=== PATIENT | female | born 1945 | race Caucasian/White ===

== ENCOUNTER 2017-03-11 10:04 | Outpatient (CLI) | payer MEDICARE ==
[2017-03-11 13:05] LABS: Mean Platelet Volume 7.2 fL (7.4-10.4); Red Blood Cell (RBC) Count 4.75 mill/uL (4.20-5.40); White Blood Cell (WBC) Count 5.5 thou/uL (4.8-10.8)
[2017-03-11 13:30] LABS: Anion Gap 10 mmol/L (10-20); BUN (Urea Nitrogen) 14 mg/dL (9.8-20.1); Calc. Creatinine Clearance 0 mL/min (70-130); Calcium 9.9 mg/dL (7.8-10.44); Carbon Dioxide 31 mmol/L (23-31); Chloride 103 mmol/L (98-107); Estimated GFR-MDRD 87
[2017-03-11 13:52] LABS: PTT 29.9 SEC (22.9-36.1)
[2017-03-11 13:53] LABS: Prothrombin Time 12.7 SEC (12.0-14.7)
--- NOTE | 2017-03-11 22:11 | EKG ---
Test Reason : Blood Pressure : / mmHG Vent. Rate : 059 BPM Atrial Rate : 059 BPM P-R Int : 184 ms QRS Dur : 122 ms QT Int : 480 ms P-R-T Axes : 064 -21 066 degrees QTc Int : 475 ms Sinus bradycardia Left bundle branch block Abnormal ECG When compared with ECG of 01-MAY-2012 12:21, Premature ventricular and fusion complexes are no longer Present Left bundle branch block has replaced Incomplete right bundle branch block Criteria for Anterior infarct are no longer Present Confirmed by XUAN BANEGAS, DR. Monroe ([id number]) on 03/11/2017 10:10:38 PM Referred By: JEREMIAH Confirmed By:DR. Fer GOVEA MD
== END 2017-03-11 10:05 | disposition home or self-care (01) ==
LOC: LABBT 10:04
PROVIDERS: ATTEND Surgery
DX: Z01.818 Encounter for other preprocedural examination (principal); M48.061 Spinal stenosis, lumbar region without neurogenic claudication; M54.16 Radiculopathy, lumbar region
CPT/HCPCS: 80048; 85027; 85610; 85730; 93005; 93010

== ENCOUNTER 2017-03-19 13:29 | Day surgery (SDC) | payer MEDICARE ==
[2017-03-19] MEDS ORDERED: CEFAZOLIN/Water 2 GM/20 ML SYRINGE ONE (15:00)
[2017-03-19] MEDS ORDERED: Bacitracin Zinc Ointment 30 gm TUBE ONE (15:11)
[2017-03-19] MEDS ORDERED: Sodium Chloride 0.9% 10 ML ONE (15:11)
[2017-03-19] MEDS ORDERED: Thrombin 5000 UNITS/5 ML VIAL ONE (15:11)
[2017-03-19] MEDS ORDERED: Albumin 5% 500 ML ONE (15:19)
[2017-03-19] MEDS ORDERED: Phenylephrine 10 MG/NS 250 ML 0 ML ONE ×2 (15:19→15:20)
[2017-03-19] MEDS ORDERED: Fentanyl 250 MCG/5 ML VIAL ONE (15:29)
[2017-03-19] MEDS ORDERED: Lidocaine 2% MPF 10 ML AMP (For Epidural Use) ONE (15:48)
[2017-03-19] MEDS ORDERED: Vecuronium 10 MG VIAL ONE (15:48)
[2017-03-19] MEDS ORDERED: Glycopyrrolate 0.2 MG/ML 5 ML SYRINGE ONE (15:48)
[2017-03-19] MEDS ORDERED: Propofol 200 MG/20 ML VIAL ONE ×2 (15:48)
[2017-03-19] MEDS ORDERED: Ondansetron HCl/PF 4 MG/2 ML Vial ONE (15:48)
[2017-03-19] MEDS ORDERED: PHENYLEPHRINE-NS 100 MCG/ML 10 ML SYRINGE ONE ×2 (15:48)
[2017-03-19] MEDS ORDERED: Dexamethasone 20 MG/5 ML VIAL ONE (15:48)
[2017-03-19] MEDS ORDERED: Ondansetron HCl/PF 4 MG/2 ML Vial IVP PRN (16:38)
[2017-03-19] MEDS ORDERED: Promethazine HCl 25 MG/ML VIAL IM PRN ×2 (16:38→17:52)
[2017-03-19] MEDS ORDERED: Meperidine HCl/PF 25 MG/ML VIAL SLOW IVP PRN (16:38)
[2017-03-19] MEDS ORDERED: HYDROmorphone 2 MG/ML VIAL SLOW IVP PRN (16:38)
[2017-03-19] MEDS ORDERED: Promethazine HCl 25 MG/ML VIAL SLOW IVP PRN (16:38)
[2017-03-19] MEDS ORDERED: traMADol HCl 50 MG TAB PO PRN (17:52)
[2017-03-19] MEDS ORDERED: Mag-Al 1200 mg/1200 mg/30 ML UDCUP PO PRN (17:52)
[2017-03-19] MEDS ORDERED: Fleet Enema 133 ML BOT PR PRN (17:52)
[2017-03-19] MEDS ORDERED: Acetaminophen 325 MG TAB PO PRN (17:52)
[2017-03-19] MEDS ORDERED: Milk Of Magnesia 30 ML UDCUP PO PRN (17:52)
[2017-03-19] MEDS ORDERED: Bisacodyl 10 MG SUPP PR PRN (17:52)
[2017-03-19] MEDS ORDERED: Fentanyl 100 MCG/2 ML VIAL ONE ×2 (18:30→19:24)
[2017-03-19] MEDS: Morphine 4 MG/ML VIAL SLOW IVP PRN (20:58)
[2017-03-19] MEDS ORDERED: Simvastatin 20 MG TAB PO SCH (21:00)
[2017-03-19] MEDS ORDERED: BIOTIN 10 MG PO SCH (21:00)
--- NOTE | 2017-03-19 22:56 | OP ---
OR: 12 WOUND TYPE: Type 1 wound. SURGEON: Jim Honeycutt M.D. BALE PILER: Andrews Castaneda PA-C. PREPROCEDURE DIAGNOSIS: Low back and right leg pain with right L5 and right S1 radiculopathy. POSTPROCEDURE DIAGNOSES: Low back and right leg pain with right L5 and right S1 radiculopathy. PROCEDURES PERFORMED: 1. Right L4-L5 hemilaminotomy, foraminotomy with partial facetectomy. 2. Right L5-S1 hemilaminotomy, foraminotomy, diskectomy. 3. Use of operative microscope for microdissection. DESCRIPTION OF PROCEDURE: After informed consent was obtained from the patient, the patient was brou ght to OR 12. Proper patient pause and identification was carried out. She was placed under excelle nt general endotracheal anesthesia and positioned prone on the operating room table. All appropriate points were padded. Midline linear jose was made in the low back to allow for approach to the right L4-L5, right L5-S1 segments. This area was sterilely cleansed, prepared, and draped. Proper patien t pause and identification was carried out. The wound was then opened with a combination of sharp, m onopolar and blunt dissection. The right L4-L5 and right L5-S1 hemilamina facet complexes were expos ed. Localization film confirmed our area of interest. We then performed right L4-L5, right L5-S1 he milaminotomies, foraminotomies and partial facetectomies. Microscope was then brought into the field for microdissection and completed a right L4-L5 and right L5-S1 decompression. I opted not to do a diskectomy at the L4-L5 segment as we had excellent decompression of the right L4, right L5 nerve cade ts; however, at the right L5-S1 segment, I did attempt to do a diskectomy; however the disk was quite osteophytic. We had excellent decompression at that point to the right L4, right L5, and right S1 n erve roots. Copious irrigation occurred throughout. The wound was then closed in anatomic layers fo llowing the sprinkling of vancomycin powder. The patient then emerged from anesthesia.
[2017-03-19 23:07] VITALS: BMI 32.9
[2017-03-20] MEDS: HYDROcodone/Acetaminophen 7.5/325 mg Tablet PO PRN ×2 (00:40→12:46)
[2017-03-20] MEDS: CEFAZOLIN/Water 2 GM/20 ML SYRINGE SLOW IVP SCH ×2 (00:40→08:23)
[2017-03-20] MEDS: Sodium Chloride 0.9% 1,000 ML IV SCH ×2 (00:47→15:46)
[2017-03-20] MEDS: tiZANidine HCl 4 MG TAB PO PRN ×2 (02:28→08:17)
[2017-03-20] MEDS: Morphine 4 MG/ML VIAL SLOW IVP PRN (10:26)
--- NOTE | 2017-03-20 12:03 | PRG ---
DATE OF SERVICE: 03/20/2017 Ms. Sanchez is one day out from a 2-level hemilaminectomy for decompression of right-sided L5 and S1 nerve roots. Leg pain is better. Her back is sore. The soreness in her back is making her not walk to get up and move around as much as would be ideal. She has gotten out of bed five times to go to the bathroom. She has not made a lap around the nursing floor yet today. Neurologically, she is wel l. She has good strength and sensation in the lower extremities. Back is sore. I encouraged her to ambulate. If she is ambulatory, tolerating general diet, safe for all her activities of daily livin g, then she could be discharged as early as today. Otherwise, we will plan on tomorrow.
[2017-03-20 12:17] VITALS: BP 94/59; TEMP 97.7
--- NOTE | 2017-03-23 07:50 | DIS ---
DATE OF ADMISSION: 03/19/2017 DATE OF DISCHARGE: 03/20/2017 DISCHARGE DIAGNOSES: 1. Lumbar radiculopathy. 2. Lumbar spinal stenosis with herniated disk at L5-S1. HOSPITAL COURSE: Ms. Sanchez was admitted to [facility] to undergo right-sided L4-L5 hemila minotomy, foraminotomy with partial facetectomy and right L5-S1 hemilaminotomies, foraminotomy, and d iskectomy with Dr. Honeycutt. The patient's surgery was without complication and she was sent to the braga rgical floor to recover overnight. At time of discharge, her pain was under good control including a lmost complete resolution of her right lower extremity pain. Appropriate patient education was provi ded and outpatient followup were scheduled. Ample opportunity was given to the patient to discuss he r questions and concerns at discharge and she was pleased with her outcome postoperatively.
== END 2017-03-20 15:45 | disposition home or self-care (01) ==
LOC: SDC 13:29 → SURG A 20:13 → SDC 03-20 15:45
PROVIDERS: ATTEND Surgery
PROC: 0ST20ZZ Resection of Lumbar Vertebral Disc, Open Approach (ICD-10-PCS; principal; 2017-03-19)
PROC: 01NB0ZZ Release Lumbar Nerve, Open Approach (ICD-10-PCS; 2017-03-19)
DX: M54.16 Radiculopathy, lumbar region (principal); M48.061 Spinal stenosis, lumbar region without neurogenic claudication; E78.5 Hyperlipidemia, unspecified; M19.90 Unspecified osteoarthritis, unspecified site; Z79.899 Other long term (current) drug therapy; Z88.5 Allergy status to narcotic agent; Z96.653 Presence of artificial knee joint, bilateral; Z90.89 Acquired absence of other organs; Z90.710 Acquired absence of both cervix and uterus; Z98.890 Other specified postprocedural states
CPT/HCPCS: 63047; 63048 ×2; 76001; 96374; P9045; A4216; J1100; J2001; J2270; J2405; J2704; J3010; J3370; J3490

== ENCOUNTER 2017-03-22 07:53 | Emergency (ER) | payer MEDICARE ==
[2017-03-22] MEDS ORDERED: Metoclopramide HCl 10 MG/2 ML VIAL ONE (09:16)
[2017-03-22 09:32] LABS: #Lymphocytes 1.1 thou/uL (1.20-3.40); #Monocytes 0.3 thou/uL (0.11-0.59); #Neutrophils 10.3 thou/uL (1.40-6.50); %Monocytes 2.3 % (0.0-10.0); Hematocrit 43.3 % (36.0-47.0); Mean Platelet Volume 7.4 fL (7.4-10.4); Red Blood Cell (RBC) Count 4.64 mill/uL (4.20-5.40); White Blood Cell (WBC) Count 11.7 thou/uL (4.8-10.8)
[2017-03-22 09:57] LABS: ALT (SGPT) 14 U/L (8-55); AST (SGOT) 20 U/L (5-34); Alkaline Phosphatase 80 U/L (40-150); Anion Gap 15 mmol/L (10-20); BUN (Urea Nitrogen) 17 mg/dL (9.8-20.1); Bilirubin, Total 0.7 mg/dL (0.2-1.2); Calc. Creatinine Clearance 0 mL/min (70-130); Calcium 10.2 mg/dL (7.8-10.44); Carbon Dioxide 24 mmol/L (23-31); Chloride 103 mmol/L (98-107); Estimated GFR-MDRD 81; Globulin 2.7 g/dL (2.4-3.5); Lipase 15 U/L (8-78); Protein, Total 6.9 g/dL (6.0-8.3)
[2017-03-22 10:55] LABS: Bilirubin Negative (Negative); Blood, Urine Negative (Negative); Glucose, Urine (Dipstick) Negative (Negative); Ketone, Urine Trace mg/dL (Negative); Nitrite Negative (Negative); Protein, Urine (Dipstick) Negative (Neg-Trace); Urobilinogen 0.2 mg/dL (0.2-1.0)
== END 2017-03-22 11:55 | disposition home or self-care (01) ==
LOC: ERS 07:53
DX: R11.2 Nausea with vomiting, unspecified (principal); R10.9 Unspecified abdominal pain; Z87.39 Personal history of other diseases of the musculoskeletal system and connective tissue
CPT/HCPCS: 80053; 81003; 82553; 83690; 84484; 85025; 93005; 96361; 96374; J2765

== ENCOUNTER 2018-05-28 13:09 | Outpatient (CLI) | payer MEDICARE ==
--- NOTE | 2018-05-28 15:05 | MRI ---
MRI CERVICAL SPINE NONCONTRAST: HISTORY: Neck pain with right arm radiculopathy. FINDINGS: Vertebral body heights are maintained. There is desiccation of the intervertebral disks. C2-3: Central canal and neural foramen are patent. C3-4: Disk space narrowing. Minimal degenerative spondylolisthesis. Posterior osteophyte/disk comp donald and circumferential degenerative changes. Mild stenosis of the central canal. Moderate to sever e stenosis of each neural foramen. C4-5: Mild disk space narrowing. Thecal sac is patent. Degenerative changes with moderate to sever e stenosis of each neural foramen. C5-6: Loss of disk space. 0.4 cm retrolisthesis. Prominent posterior osteophyte/disk complex with slight flattening of the ventral aspect of the thecal sac and spinal cord. Severe central canal sten osis. No abnormal signal is apparent within the spinal cord. Severe stenosis of each neural foramen . C6-7: Very mild osteophytosis. Central canal and neural foramen are patent. C7-T1: Central canal and neural foramen are patent. Mild posterior disk bulges are apparent at the T1-2 and T2-3 levels. IMPRESSION: Multilevel degenerative changes throughout the cervical spine. Central canal and foraminal stenoses most severe at the C5-6 level. No evidence of myelomalacia. POS: [facility]
== END 2018-05-28 13:10 | disposition home or self-care (01) ==
LOC: BICMRI 13:09
PROVIDERS: ATTEND Family Medicine
DX: M47.22 Other spondylosis with radiculopathy, cervical region (principal); M48.02 Spinal stenosis, cervical region
CPT/HCPCS: 72141

== ENCOUNTER 2018-07-03 12:06 | Outpatient (CLI) | payer MEDICARE, OTHER ==
[~2018-07-03 12:06] MED LIST: Gadobenate Dimeglumine 529 MG/1 ML (20ML VIAL) ONE
--- NOTE | 2018-07-03 14:53 | RAD ---
LUMBAR SPINE FOUR VIEWS: History: Post laminectomy syndrome, intervertebral disc disorder. Radiculopathy. Post laminectomy syndrome. Lo w back pain. FINDINGS: Extensive multilevel disc osteophytosis and facet arthrosis with 0.8 cm anterolisthesis of L5 on S1 w ith abnormal translation between flexion and extension. No evidence for acute fracture or dislocation . IMPRESSION: Stable appearing lumbar spine with mild anterolisthesis of L5 on S1 without abnormal translation betw een flexion and extension. POS: [facility]
--- NOTE | 2018-07-03 15:31 | MRI ---
MRI LUMBAR SPINE WITH AND WITHOUT CONTRAST: DATE: 07/03/18 HISTORY: 73-year-old female. M96.1, post laminectomy syndrome, not elsewhere classified. M51.16, intervertebral disc disorder with radiculopathy of lumbar region. COMPARISON: 06/19/16. TECHNIQUE: Multiple sequences obtained in axial and sagittal planes, pre and post IV injection of gadolinium-bas ed contrast agent: 13 mL MultiHance. FINDINGS: There is a nonenhancing 1 cm parenchymal lesion at the posterior aspect of the right renal upper pole , and a similar one at the anterolateral aspect of right renal mid pole, consistent with cysts. Vertebral body heights are maintained. T12-L1: Tiny central disc protrusion. Otherwise normal. L1-2: Degenerative disc disease manifested by severe disc space narrowing, end plate irregularities, and diffuse, broad based disc-osteophytic bar complex which encroaches upon the anterior aspect of t he spinal canal without causing high grade central spinal canal stenosis. Mild bilateral neural derrek inal stenosis. No major interval change. Modic Type II end plate changes. L2-3: Conus medullaris terminates at lower L2. Severe disc space narrowing, end plate irregularity, Modic Type II changes, slight degenerative retrolisthesis of L2 on L3, and diffuse, broad based disc- osteophytic bar complex that indents the ventral aspect of the thecal sac. Small focal right paracent ral disc-osteophyte complex superimposed on the diffuse component again noted. Minimal central spinal canal stenosis. Mild thecal sac stenosis. No high grade facet DJD. Mild to moderate right neural for aminal stenosis. Mild left neural foraminal stenosis. No major interval change. L3-4: Slight interval progression of the now moderate-severe disc space narrowing. New finding of bunny ne marrow edema and marrow enhancement of the inferior end plate of L3 and superior end plate of L4. This could either represent severe Modic Type I changes or osteomyelitis. Mildly hyperintense T2 sign al within the disc space. This could represent extensive annular tears or early diskitis. The end jennyfer nima are not frankly destroyed. It is difficult to determinate whether or not there is enhancement of the intervertebral disc space, because of artifact on the postcontrast T1-weighted sagittal sequence. Broad based disc-osteophytic bar complex indents the ventral aspect of the thecal sac, causing mild central spinal canal stenosis. Posterior epidural fat pad is larger on the current study compared to the previous, contributing to a greater degree of thecal sac stenosis than before, now moderate. Righ t lateral and far lateral component of the disc bulge causes moderate right neural foraminal stenosis , similar to previous study. There is also moderate left neural foraminal stenosis, similar to previo us study. L4-5: There is a new right partial facetectomy and/or hemilaminotomy. This results in a defect at th e medial anterior aspect of the right facet complex into which the right lateral aspect of the thecal sac bulges laterally. There is no significant central spinal canal stenosis. Posterior epidural fat pad. The thecal sac is minimally stenotic. No interval change in the degree of moderate disc space na rrowing, diffuse disc bulge, and degenerative retrolisthesis of L4 on L5. Bilateral mild to moderate degenerative facet changes. Moderate bilateral neural foraminal stenosis. L5-S1: Disc space maintained. Severe bilateral facet DJD results in Grade I anterolisthesis of L5 on S1, unchanged. Diffuse disc bulge. No central stenosis. Moderate to severe right neural foraminal st enosis with indentation upon the inferior aspect of the exiting right L5 nerve root by far lateral co mponent of disc bulge. Moderate left neural foraminal stenosis. No overall interval change at this le crow. IMPRESSION: 1. Lumbar spondylosis: multilevel degenerative disc disease, ranging from mild to severe; and L5-S1 severe facet osteoarthrosis. 2. New finding of bone marrow edema at the end plates at L3-4. This may represent somewhat severe Mo dic Type I changes. There is an alternative possibility of osteomyelitis-diskitis. 3. Status post right hemilaminotomy and/or right partial facetectomy at L4-5. 4. Multilevel high grade bilateral neural foraminal stenosis, worst on the right at L5-S1. All of th renetta are unchanged since 06/19/16. 5. No severe central spinal canal stenosis at any level. JN Thao POS: [facility]
== END 2018-07-03 12:07 | disposition home or self-care (01) ==
LOC: BICMRI 12:06
PROVIDERS: ATTEND Specialist
DX: M96.1 Postlaminectomy syndrome, not elsewhere classified (principal); M51.16 Intervertebral disc disorders with radiculopathy, lumbar region; M43.17 Spondylolisthesis, lumbosacral region; M47.26 Other spondylosis with radiculopathy, lumbar region; M47.817 Spondylosis without myelopathy or radiculopathy, lumbosacral region; M48.07 Spinal stenosis, lumbosacral region
CPT/HCPCS: 72110; 72158; 82565; A9577

== ENCOUNTER 2022-07-18 14:01 | Emergency (ER) | payer MEDICARE ==
[2022-07-18] MEDS ORDERED: fentaNYL 50 mcg/mL 1 mL Vial ONE (14:11)
[2022-07-18] MEDS ORDERED: Ondansetron PF 4 MG/2 ML Vial ONE (14:11)
[2022-07-18] MEDS ORDERED: Ketamine 50 MG/ML (10ML VIAL) ONE (15:10)
[2022-07-18] MEDS ORDERED: PROPOFOL 20 ML ONE (15:44)
[2022-07-18 16:12] LABS: #Basophils 0.1 thou/uL (0.0-0.2); #Lymphocytes 3.4 thou/uL (1.20-3.40); #Neutrophils 8.8 thou/uL (1.40-6.50); %Basophils 0.4 % (0.0-1.0); %Eosinophils 0.4 % (0.0-10.0); %Lymphocytes 25.9 % (21.0-51.0); %Monocytes 7.3 % (0.0-10.0); %Neutrophils 66.1 % (42.0-75.0); Hemoglobin 15.2 g/dL (12.0-16.0); Mean Corpuscular HGB CONC 34.5 g/dL (32.0-36.0); Mean Corpuscular Volume 89.9 fl (78.0-98.0); Mean Platelet Volume 7.9 fL (7.4-10.4); Platelet Count 286 10x3/uL (130-400); RBC Distribution Width 12.6 % (11.5-14.5); White Blood Cell (WBC) Count 13.2 10x3/uL (4.8-10.8)
[2022-07-18 16:33] LABS: ALT (SGPT) 16 U/L (8-55); AST (SGOT) 19 U/L (5-34); Albumin 4.6 g/dL (3.4-4.8); Alkaline Phosphatase 107 U/L (40-110); Anion Gap 18 mmol/L (10-20); BUN (Urea Nitrogen) 16 mg/dL (9.8-20.1); Bilirubin, Total 0.8 mg/dL (0.2-1.2); Calc. Creatinine Clearance 0 mL/min (70-130); Calcium 9.7 mg/dL (7.8-10.44); Carbon Dioxide 20 mmol/L (23-31); Chloride 104 mmol/L (98-107); Estimated GFR 82; Globulin 2.5 g/dL (2.4-3.5); Glucose 163 mg/dL (83-110); Potassium 3.6 mmol/L (3.5-5.1); Protein, Total 7.1 g/dL (5.8-8.1); Sodium 138 mmol/L (136-145)
[2022-07-18] MEDS ORDERED: Bacitracin 1 PK ONE (17:23)
[2022-07-18 17:44] LABS: Bacteria/HPF None Seen HPF (None Seen); Bilirubin Negative (Negative); Blood, Urine Negative (Negative); Clarity Clear (Clear); Glucose, Urine (Dipstick) Normal (Negative); Ketone, Urine 60 mg/dL (Negative); Leukocyte 75 Leu/uL (Negative); Nitrite Negative (Negative); Protein, Urine (Dipstick) 20 mg/dL (Neg-Trace); RBC/HPF 0-3 HPF (0-3); Specific Gravity, Urine 1.027 (1.002-1.036); Squamous Epithelial 0-3 HPF (0-3); WBC/HPF 0-3 HPF (0-3); pH, Urine 5.5 (5.0-9.0)
== END 2022-07-18 18:12 | disposition home or self-care (01) ==
LOC: ERS 14:01
DX: S43.004A Unspecified dislocation of right shoulder joint, initial encounter (principal); W18.30XA Fall on same level, unspecified, initial encounter; R68.89 Other general symptoms and signs; Z20.822 Contact with and (suspected) exposure to COVID-19
CPT/HCPCS: 23650; 71045; 73030; 73060; 80053; 83880; 84484; 85025; 93005; 96374; 96375; 99152; 99284; J3010; U0003; U0005; 81003; 81015; J2405; J2704

== ENCOUNTER 2022-08-27 09:31 | Outpatient (CLI) | payer MEDICARE | END 2022-08-27 09:32 | disposition home or self-care (01) | LOC: TBSIIMAG 09:31 | PROVIDERS: ATTEND Orthopaedic Surgery | DX: S46.011A Strain of muscle(s) and tendon(s) of the rotator cuff of right shoulder, initial encounter (principal); M19.012 Primary osteoarthritis, left shoulder; M19.011 Primary osteoarthritis, right shoulder ==

== ENCOUNTER 2023-02-27 09:35 | Outpatient (CLI) | payer MEDICARE | END 2023-02-27 09:36 | disposition home or self-care (01) | LOC: MRI 09:35 → EEVIPCON 09:35 → MRI 09:36 | PROVIDERS: ATTEND Surgery | DX: M43.17 Spondylolisthesis, lumbosacral region (principal); M53.9 Dorsopathy, unspecified; M47.816 Spondylosis without myelopathy or radiculopathy, lumbar region; Z98.890 Other specified postprocedural states | CPT/HCPCS: 72148 ==

== ENCOUNTER 2023-03-18 13:04 | Outpatient (CLI) | payer MEDICARE | END 2023-03-18 13:05 | disposition home or self-care (01) | LOC: BICMRI 13:04 | PROVIDERS: ATTEND Surgery | DX: M25.552 Pain in left hip (principal); M70.62 Trochanteric bursitis, left hip; S76.012A Strain of muscle, fascia and tendon of left hip, initial encounter ==

== ENCOUNTER 2023-06-12 09:59 | Outpatient (CLI) | payer MEDICARE ==
[~2023-06-12 09:59] MED LIST changes: -Gadobenate Dimeglumine 529 MG/1 ML (20ML VIAL) ONE; +Magnevist 469MG/ML 20 ML VIAL ONE
== END 2023-06-12 10:00 | disposition home or self-care (01) ==
LOC: BICMRI 09:59
PROVIDERS: ATTEND Family Medicine
DX: G89.4 Chronic pain syndrome (principal); D17.22 Benign lipomatous neoplasm of skin and subcutaneous tissue of left arm
CPT/HCPCS: A9579

== ENCOUNTER 2023-07-24 14:06 | Outpatient (CLI) | payer MEDICARE | END 2023-07-24 14:07 | disposition home or self-care (01) | LOC: BICMAMMO 14:06 | PROVIDERS: ATTEND Family Medicine | DX: Z12.31 Encounter for screening mammogram for malignant neoplasm of breast (principal); Z13.820 Encounter for screening for osteoporosis; M81.0 Age-related osteoporosis without current pathological fracture; M85.851 Other specified disorders of bone density and structure, right thigh; Z78.0 Asymptomatic menopausal state; Z80.3 Family history of malignant neoplasm of breast; Z91.89 Other specified personal risk factors, not elsewhere classified | CPT/HCPCS: 77063; 77067; 77080 ==

== ENCOUNTER 2024-01-21 13:48 | Emergency (ER) | payer MEDICARE ==
[~2024-01-21 13:48] MED LIST changes: +Iopamidol-370 76% 500 ML MDV (1 ML CHARGE) ONE; -Magnevist 469MG/ML 20 ML VIAL ONE
[2024-01-21 14:58] LABS: #Basophils 0.05 10x3/uL (0.0-0.2); %Basophils 0.7 % (0.0-1.0); %Eosinophils 3.3 % (0.0-10.0); %Lymphocytes 28.8 % (21.0-51.0); %Monocytes 7.5 % (0.0-10.0); %Neutrophils 59.4 % (42.0-75.0); Hematocrit 40.8 % (36.0-47.0); Hemoglobin 13.4 g/dL (12.0-16.0); Mean Corpuscular HGB CONC 32.8 g/dL (32.0-36.0); Mean Corpuscular Hemoglobin 29.8 pg (27.0-31.0); Mean Corpuscular Volume 90.9 fL (78.0-98.0); Mean Platelet Volume 9.8 fL (7.4-10.4); Platelet Count 235 10x3/uL (130-400); Red Blood Cell (RBC) Count 4.49 mill/uL (4.20-5.40)
[2024-01-21 15:18] LABS: ALT (SGPT) 16 U/L (8-55); AST (SGOT) 18 U/L (5-34); Albumin 3.8 g/dL (3.4-4.8); Alkaline Phosphatase 77 U/L (40-110); Anion Gap 10 mmol/L (10-20); BUN (Urea Nitrogen) 20 mg/dL (9.8-20.1); Bilirubin, Total 0.4 mg/dL (0.2-1.2); Calc. Creatinine Clearance 0 mL/min (70-130); Calcium 9.5 mg/dL (7.8-10.44); Carbon Dioxide 26 mmol/L (23-31); Chloride 108 mmol/L (98-107); Estimated GFR 70; Globulin 2.9 g/dL (2.4-3.5); Glucose 96 mg/dL (83-110); Lipase 22 U/L (8-78); Potassium 3.9 mmol/L (3.5-5.1); Protein, Total 6.7 g/dL (5.8-8.1); Sodium 140 mmol/L (136-145)
[2024-01-21 18:09] LABS: Bacteria/HPF None Seen HPF (None Seen); Bilirubin Negative (Negative); Blood, Urine Negative (Negative); CAUTI Indications for Culture Dysuria,urgency,freq; Clarity Clear (Clear); Glucose, Urine (Dipstick) Normal (Negative); Ketone, Urine Negative (Negative); Leukocyte Negative Leu/uL (Negative); Nitrite Negative (Negative); Protein, Urine (Dipstick) Negative (Neg-Trace); RBC/HPF 0-3 HPF (0-3); Squamous Epithelial None Seen HPF (0-3); Urobilinogen Normal mg/dL (Less than 2); WBC/HPF 0-3 HPF (0-3)
[2024-01-21 18:14] LABS: Urine Culture Reflex No No
== END 2024-01-21 19:37 | disposition home or self-care (01) ==
LOC: ERS 13:48
DX: S39.011A Strain of muscle, fascia and tendon of abdomen, initial encounter (principal); X58.XXXA Exposure to other specified factors, initial encounter
CPT/HCPCS: 36415; 74177; 80053; 81001; 83690; 85025